=== PATIENT | female | born 1990 | race Caucasian/White ===

== ENCOUNTER 2017-10-11 14:44 | Emergency (ER) | payer OTHER | END 2017-10-11 16:14 | disposition home or self-care (01) | LOC: ERS 14:44 | DX: R20.2 Paresthesia of skin (principal); F41.9 Anxiety disorder, unspecified; F32.9 Major depressive disorder, single episode, unspecified; F17.210 Nicotine dependence, cigarettes, uncomplicated | CPT/HCPCS: 99283 ==

== ENCOUNTER 2017-10-17 23:40 | Emergency (ER) | payer OTHER | END 2017-10-18 00:24 | disposition left against medical advice (07) | LOC: ERS 23:40 | DX: Z53.21 Procedure and treatment not carried out due to patient leaving prior to being seen by health care provider (principal) ==

== ENCOUNTER 2017-12-17 23:08 | Emergency (ER) | payer OTHER, SELFPAY ==
[2017-12-20 03:17] LABS: Chlamydia by PCR Not Detected (NotDetected); GC by PCR Not Detected (NotDetected)
== END 2017-12-18 00:31 | disposition home or self-care (01) ==
LOC: ERS 23:08
DX: Z20.2 Contact with and (suspected) exposure to infections with a predominantly sexual mode of transmission (principal); F32.9 Major depressive disorder, single episode, unspecified; F17.210 Nicotine dependence, cigarettes, uncomplicated
CPT/HCPCS: 87480; 87491; 87510; 87591; 87660; 99283

== ENCOUNTER 2018-01-02 16:26 | Emergency (ER) | payer SELFPAY ==
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
[2018-01-02] MEDS ORDERED: HYDROcodone/Acetaminophen 10/325 mg Tablet ONE (18:03)
[2018-01-02] MEDS ORDERED: Bacitracin Zinc 1 Packet ONE (18:03)
[2018-01-02] MEDS ORDERED: Adacel (T-DAP) 0.5 ML VIAL ONE ×2 (18:03→18:24)
== END 2018-01-02 18:32 | disposition home or self-care (01) ==
LOC: ERS 16:26
DX: S40.012A Contusion of left shoulder, initial encounter (principal); S50.02XA Contusion of left elbow, initial encounter; S50.01XA Contusion of right elbow, initial encounter; S80.02XA Contusion of left knee, initial encounter; S80.01XA Contusion of right knee, initial encounter; S60.042A Contusion of left ring finger without damage to nail, initial encounter; M70.20 Olecranon bursitis, unspecified elbow; F32.9 Major depressive disorder, single episode, unspecified; F17.210 Nicotine dependence, cigarettes, uncomplicated; Y04.2XXA Assault by strike against or bumped into by another person, initial encounter
CPT/HCPCS: 90471; 90715

== ENCOUNTER 2018-03-05 12:46 | Emergency (ER) | payer OTHER ==
--- NOTE | 2018-03-05 15:10 | RAD ---
AP VIEW CHEST: Date: 03/05/18 INDICATION: Chest pain and shortness of breath. COMPARISON: None. IMPRESSION: No acute cardiopulmonary abnormality. COMMENTS: Lungs are clear. Cardiomediastinal silhouette is within normal limits. No acute osseous abnormality i s evident. POS: [facility]
== END 2018-03-05 14:18 | disposition home or self-care (01) ==
LOC: ERS 12:46
DX: J06.9 Acute upper respiratory infection, unspecified (principal); K08.89 Other specified disorders of teeth and supporting structures; F32.9 Major depressive disorder, single episode, unspecified; F17.210 Nicotine dependence, cigarettes, uncomplicated
CPT/HCPCS: 71045; 93005; A4353